=== PATIENT | female | born 1990 | race American Indian/Alaskan Native ===

== ENCOUNTER 2019-02-27 09:38 | Emergency (ER) | payer SELFPAY ==
[2019-02-27 09:55] VITALS: BP 108/72
--- NOTE | 2019-02-27 10:08 | Emergency Department Report ---
Chief Complaint: Urogenital-Female Stated Complaint: ABD PAIN Time Seen by Provider: 02/27/19 10:03 - HPI History of Present Illness: pt is a 28 yo female who presents to the ED with c/o mild lower abdominal cramping that began two days ago. states she began her menstrual cycle that began two days ago. states initially two days ago had heavier flow but that has since resolved and is now light. she denies any N/V, fever, chills, urinary sx. she denies any PMHx. no allergies to meds. states her previous cycle was at the end of january. she states she has a mirena IUD states it has been in since she was 20. vitals are normal on exam: no acute distress, non toxic appearing heart sounds are normal, no gallops, no rubs, no murmurs normal breath sounds bilaterally without w/r/r no abd tenderness on exam, no guarding, no rebound, no rigidity, normal bowel sounds pt is presenting with mild dysmenorrhea, menstrual cramps she has had her mirena IUD in for approximately 8 years, I advised pt she needed to follow up with an [facility] for removal pt is presenting with a non medical emergency at this time medical screening exam performed and there is no threat to life or limb - Exam Vital Signs: Vital Signs 02/27/19 09:46 Temperature 98.6 F Pulse Rate 95 H Respiratory 18 Rate Blood Pressure 108/72 O2 Sat by Pulse 99 Oximetry MSE screening note: Focused history and physical exam performed. ED Disposition for MSE Clinical Impression: Dysmenorrhea Disposition: Z-07 MED SCREENING EXAM-LEFT Is pt being admited?: No Does the pt Need Aspirin: No Condition: Stable Instructions: Dysmenorrhea (ED) Additional Instructions: may take tylenol or ibuprofen for discomfort. may use a heating pad for 15 minutes at a time do not apply directly to the skin. increase your water intake. please follow up with an [facility] in the next 2-3 days. please discuss removing your mirena. return to the emergency room for any new or worsening symptoms. Referrals: [facility] [Provider Group] - 2-3 Days [facility] [Provider Group] - 2-3 Days [facility] [Provider Group] - 2-3 Days [facility] [Outside] - 2-3 Days [facility] [Outside] - 2-3 Days Forms: Work/School Release Form(ED) Time of Disposition: 10:09 Print Language: MALTESE
== END 2019-02-27 10:41 | disposition left against medical advice (07) ==
LOC: ED 09:38
DX: N94.6 Dysmenorrhea, unspecified (principal)
CPT/HCPCS: 99281

== ENCOUNTER 2019-05-22 05:31 | Emergency (ER) | payer SELFPAY ==
[2019-05-22 05:39] VITALS: BP 114/76
[2019-05-22] MEDS ORDERED: KETOROLAC 30 MG/1 ML INJ IM ONE (08:42)
[2019-05-22] MEDS ORDERED: ONDANSETRON 4 MG ODT TAB PO ONE (08:42)
--- NOTE | 2019-05-22 08:42 | Emergency Department Report ---
<REVA ACEVEDO RASHIDCARLOS - Last Filed: 05/22/19 09:04> ED Headache HPI - General Chief Complaint: Headache Stated Complaint: HEADACHE, SORE THROAT Time Seen by Provider: 05/22/19 07:37 Source: patient, RN notes reviewed Exam Limitations: no limitations - History of Present Illness Initial Comments: This is a 28-year-old -[place] female who presents to the emergency room with a headache and sore throat for 2 days. Past medical history of occasional headaches and a gastric bypass in 2008. Patient states she is taking Goody powders which she usually takes for headaches but this time if not resolving. Reports bilateral temporal dull achy intensity. She denies fever, chills, cough, nausea, vomiting, visual changes, abdominal pain, or weakness. Timing/Duration: 24 hours Quality: moderate Head Injury Location: temporal Recent Head Trauma: occasional headaches Modifying Factors: worse with: cold therapy, exposure to light, immobilization, medication, movement, rest, other Associated Symptoms: denies: confusion, fatigue, facial pain, fever/chills, flushing, loss of consciousness, nausea/vomiting, nasal congestion, nasal drainage, numbness in legs/feet, rash, seizures, sinus infection, stiff neck, vision changes, weakness Allergies/Adverse Reactions: Allergies No Known Allergies Allergy (Verified 05/22/19 05:34) Home Medications: Ambulatory Orders Butalb/Acetaminophen/Caffeine [Fioricet 50-300-40 mg CAP] 1 cap PO Q8HR PRN #12 cap 05/22/19 ED Review of Systems Constitutional: denies: chills, fever Eyes: denies: eye pain, eye discharge, vision change ENT: throat pain. denies: ear pain Respiratory: denies: cough, shortness of breath, wheezing Cardiovascular: denies: chest pain, palpitations Gastrointestinal: denies: abdominal pain, nausea, diarrhea Musculoskeletal: denies: back pain, joint swelling, arthralgia Skin: denies: rash, lesions Neurological: headache. denies: weakness, paresthesias Psychiatric: denies: anxiety, depression ED Past Medical Hx - Past Medical History Previous Medical History?: No - Surgical History Past Surgical History?: Yes Additional Surgical History: gastric bypass - Social History Smoking Status: Current Every Day Smoker Substance Use Type: None - Medications Home Medications: Home Medications Medication Instructions Recorded Confirmed Last Taken Type Butalb/Acetaminophen/Caffeine 1 cap PO Q8HR PRN #12 cap 05/22/19 Unknown Rx [Fioricet 50-300-40 mg CAP] ED Physical Exam - General Limitations: No Limitations General appearance: alert, in no apparent distress - ENT ENT exam: Present: normal orophraynx, mucous membranes moist, TM's normal bilaterally, normal external ear exam - Neck Neck exam: Present: normal inspection - Respiratory Respiratory exam: Present: normal lung sounds bilaterally. Absent: respiratory distress - Cardiovascular Cardiovascular Exam: Present: regular rate, normal rhythm. Absent: systolic murmur, diastolic murmur, rubs, gallop - GI/Abdominal GI/Abdominal exam: Present: soft, normal bowel sounds. Absent: distended, tenderness, guarding, rebound, rigid - Extremities Exam Extremities exam: Present: normal inspection - Neurological Exam Neurological exam: Present: alert, oriented X3, normal gait - Psychiatric Psychiatric exam: Present: normal affect, normal mood - Skin Skin exam: Present: warm, dry, intact, normal color. Absent: rash ED Medical Decision Making - Medical Decision Making This is a 28 y.o. female that presents with headache and sore throat for 2 days. History of migraines and gastric bypass. Patient is stable and was examined by me. Given toradol and Zofran. Monitored for 1 hour and patient reports feeling better. Start Fioricet and continue NSAIDs PRN. Follow-up with PCP. Discharged home in stable condition. Patient given strict return instructions. Follow up with PCP in 24-72 hours. ED Disposition Clinical Impression: Migraine Qualifiers: Migraine type: without aura Status migrainosus presence: with status migrainosus Intractability: not intractable Qualified Code(s): G43.001 - Migraine without aura, not intractable, with status migrainosus Disposition: - TO HOME OR SELFCARE Is pt being admited?: No Condition: Stable Instructions: Migraine Headache (ED) Additional Instructions: Take medication at start of headache. Moderate caffeine intake. Eat at scheduled times or 3 meals a day with snacks. Follow up with primary care provider in 24-72 hours. Prescriptions: Butalb/Acetaminophen/Caffeine [Fioricet 50-300-40 mg CAP] 1 cap PO Q8HR PRN #12 cap PRN Reason: Headache Referrals: [facility] [place]] - 3-5 Days [facility] [Outside] - 3-5 Days [facility] [Outside] - 3-5 Days Forms: Work/School Release Form(ED) Time of Disposition: 09:14 <VIBHA GUERRA - Last Filed: 05/22/19 09:43> ED Review of Systems ROS: Stated complaint: HEADACHE, SORE THROAT Other details as noted in HPI ED Course Vital Signs 05/22/19 05:34 Temperature 97.5 F L Pulse Rate 69 Respiratory 18 Rate Blood Pressure 114/76 O2 Sat by Pulse 100 Oximetry ED Medical Decision Making - Medical Decision Making This patient was evaluated and dispositioned by the advanced practitioner. I was available for consultation. Critical care attestation.: If time is entered above; I have spent that time in minutes in the direct care of this critically ill patient, excluding procedure time. ED Disposition Is pt being admited?: No
== END 2019-05-22 09:27 | disposition home or self-care (01) ==
LOC: ED 05:31
DX: G43.909 Migraine, unspecified, not intractable, without status migrainosus (principal); J02.9 Acute pharyngitis, unspecified; F17.200 Nicotine dependence, unspecified, uncomplicated; Z98.890 Other specified postprocedural states; Z79.899 Other long term (current) drug therapy
CPT/HCPCS: 96372; 99282; J1885; Q0162

== ENCOUNTER 2020-06-10 23:07 | Emergency (ER) | payer SELFPAY ==
--- NOTE | 2020-06-11 00:40 | Emergency Department Report ---
ED Abdominal Pain HPI - General Chief Complaint: Abdominal Pain Stated Complaint: ABD PAINS Time Seen by Provider: 06/11/20 00:33 Source: patient Mode of arrival: Ambulatory Limitations: No Limitations - History of Present Illness Initial Comments: Chief complaint: Really bad menstrual cramps HPI this is a 29-year-old female who presents with menstrual cramps atypical vaginal bleeding. 2 days. She feels as if the Mirena needs to be removed. She denies fever. Mild to moderate pain. Ibuprofen provided mild relief. Tylenol exacerbates eczema. Goody powder exacerbates GERD. MD Complaint: abdominal pain -: Gradual, days(s) (2 days) Location: suprapubic Radiation: none Severity: mild, moderate Quality: cramping Consistency: constant Improves With: medication (Ibuprofen) Worsens With: nothing Associated Symptoms: denies other symptoms - Related Data Previous Rx's Medication Instructions Recorded Last Taken Type Butalb/Acetaminophen/Caffeine 1 cap PO Q8HR PRN #12 cap 05/22/19 Unknown Rx [Fioricet 50-300-40 mg CAP] traMADoL [Ultram 50 MG tab] 50 mg PO Q6HR PRN #15 tablet 06/11/20 Unknown Rx Allergies Allergy/AdvReac Type Severity Reaction Status Date / Time No Known Allergies Allergy Verified 09/12/19 13:14 ED Review of Systems ROS: Stated complaint: ABD PAINS Other details as noted in HPI Comment: All other systems reviewed and negative Constitutional: denies: fever, malaise Cardiovascular: denies: chest pain Gastrointestinal: denies: nausea, vomiting, diarrhea ED Past Medical Hx - Past Medical History Previous Medical History?: No - Surgical History Past Surgical History?: Yes Additional Surgical History: gastric bypass 2008 - Social History Smoking Status: Never Smoker - Medications Home Medications: Home Medications Medication Instructions Recorded Confirmed Last Taken Type Butalb/Acetaminophen/Caffeine 1 cap PO Q8HR PRN #12 cap 05/22/19 Unknown Rx [Fioricet 50-300-40 mg CAP] traMADoL [Ultram 50 MG tab] 50 mg PO Q6HR PRN #15 tablet 06/11/20 Unknown Rx ED Physical Exam - General Limitations: No Limitations General appearance: alert, in no apparent distress, other (Appears well no acute distress ambulatory without difficulty) - Head Head exam: Present: atraumatic, normocephalic - Eye Eye exam: Present: normal appearance - ENT ENT exam: Present: mucous membranes moist - Neck Neck exam: Present: normal inspection - Respiratory Respiratory exam: Present: normal lung sounds bilaterally. Absent: respiratory distress, wheezes, rales - Cardiovascular Cardiovascular Exam: Present: regular rate, normal rhythm, normal heart sounds. Absent: systolic murmur, diastolic murmur, rubs, gallop - GI/Abdominal GI/Abdominal exam: Present: soft, normal bowel sounds. Absent: distended, tenderness, guarding, rebound - Extremities Exam Extremities exam: Present: normal inspection - Back Exam Back exam: Present: normal inspection - Neurological Exam Neurological exam: Present: alert, oriented X3, normal gait - Psychiatric Psychiatric exam: Present: normal affect, normal mood - Skin Skin exam: Present: warm, dry, intact, normal color. Absent: rash ED Medical Decision Making - Medical Decision Making Dysmenorrhea: Prescription for tramadol provided Critical care attestation.: If time is entered above; I have spent that time in minutes in the direct care of this critically ill patient, excluding procedure time. ED Disposition Clinical Impression: Dysmenorrhea Disposition: DC-01 TO HOME OR SELFCARE Is pt being admited?: No Does the pt Need Aspirin: No Condition: Stable Instructions: Abdominal Pain (ED), Dysmenorrhea Prescriptions: traMADoL [Ultram 50 MG tab] 50 mg PO Q6HR PRN #15 tablet PRN Reason: Pain Referrals: NATHAN ROA MD [Staff Physician] - 3-5 Days Forms: Work/School Release Form(ED)
[2020-06-11 08:00] VITALS: BP 128/77
== END 2020-06-11 01:35 | disposition home or self-care (01) ==
LOC: ED 23:07
DX: N94.6 Dysmenorrhea, unspecified (principal); Z79.899 Other long term (current) drug therapy
CPT/HCPCS: 99282

== ENCOUNTER 2021-04-18 13:17 | Emergency (ER) | payer SELFPAY ==
[2021-04-18 13:41] VITALS: BP 103/85
--- NOTE | 2021-04-18 14:35 | Emergency Department Report ---
ED Rash HPI - HPI Chief Complaint: Skin Rash Stated Complaint: EZCEMA Time Seen by Provider: 04/18/21 13:48 Duration: 3 wks Location: Head, Chest, Back, Abdomen, Upper Extremities, Lower Extremities Rash Symptoms: Yes Itching, No Facial Swelling, No Tongue/Oral Swelling, No Breathing Difficulties, No Choking Sensation, No Wheezing/Dyspnea, No Peeling, No Blistering, No Fever, No Lightheaded, No Malaise, No Myalgias Severity: mild Other History: 30-year-old female with a known history of eczema presents to the ER today with complaints of a flareup of her eczema. Patient states that she ran out of her triamcinolone ointment 3 weeks ago and since then she her eczema has flared up. She states that she has been breaking almost everywhere. She reports a pruritic rash similar to that of her eczema. She denies any swelling, or any additional symptoms at this time. ED Review of Systems ROS: Stated complaint: EZCEMA Other details as noted in HPI Comment: All other systems reviewed and negative Constitutional: denies: chills, fever Eyes: denies: eye pain, eye discharge, vision change ENT: denies: ear pain, throat pain, dental pain, hearing loss, epistaxis, congestion Respiratory: denies: cough, orthopnea, shortness of breath, SOB with exertion, SOB at rest, wheezing Cardiovascular: denies: chest pain, palpitations, edema, syncope, paroxysmal nocturnal dyspnea Gastrointestinal: denies: abdominal pain, nausea, vomiting, diarrhea, constipation, hematemesis, hematochezia Skin: rash, pruritus Neurological: denies: headache, weakness, numbness, paresthesias, confusion, abnormal gait, vertigo Psychiatric: denies: anxiety, depression, auditory hallucinations, visual hallucinations, homicidal thoughts, suicidal thoughts Hematological/Lymphatic: denies: easy bleeding, easy bruising, swollen glands ED Past Medical Hx - Past Medical History Previous Medical History?: No - Surgical History Past Surgical History?: Yes Additional Surgical History: gastric bypass 2008 - Social History Smoking Status: Never Smoker - Medications Home Medications: Home Medications Medication Instructions Recorded Confirmed Last Taken Type Butalb/Acetaminophen/Caffeine 1 cap PO Q8HR PRN #12 cap 05/22/19 Unknown Rx [Fioricet 50-300-40 mg CAP] traMADoL [Ultram 50 MG tab] 50 mg PO Q6HR PRN #15 tablet 06/11/20 Unknown Rx Triamcinolone Aceton 0.1% (Nf) 1 applic TP DAILY #80 gram 04/18/21 Unknown Rx [Kenalog (NF)] Rash Exam - Exam General: Vital signs noted. No distress. Alert and acting appropriately. HEENT: No Periorbital Edema, No Conjuctival Injection, No Chemosis, No Perioral Edema, No Tongue Edema, No Uvular Edema, No Compromised Airway, No Drooling Lungs: Yes Good Air Exchange, No Wheezes, No Ronchi, No Stridor, No Cough, No Labored Respirations, No Retractions, No Use of Accessory Muscles, No Other Abnormal Lung Sounds Heart: Yes Regular, Yes Murmur Skin: Yes Maculopapular Rash (Maculopapular, hyperpigmented dry patchy areas scattered on her back, abdomen, extremities and mildly on her face), No Urticarial Rash, No Morbilliform rash, No Bulla(e), No Excoriations, No Weeping, No Tenderness, No Erythema, No Edema, No Encrustations, No Other Other: Positive: Abdomen Normal, Neurologic Normal, Musculoskeletal Normal ED Course Vital Signs 04/18/21 13:39 Temperature 98.4 F Pulse Rate 71 Respiratory 16 Rate Blood Pressure 103/85 [Left] O2 Sat by Pulse 95 Oximetry Critical care attestation.: If time is entered above; I have spent that time in minutes in the direct care of this critically ill patient, excluding procedure time. ED Disposition Clinical Impression: Eczema Disposition: 01 HOME / SELF CARE / HOMELESS Is pt being admited?: No Does the pt Need Aspirin: No Condition: Stable Instructions: Eczema Additional Instructions: Start the triamcinolone ointment as prescribed. 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 Return to ED if worse. Prescriptions: Triamcinolone Aceton 0.1% (Nf) [Kenalog (NF)] 1 applic TP DAILY #80 gram Referrals: PRIMARY MD MINDI [Primary Care Provider] - 3-5 Days KRISTEN MONTERROSO MD [Staff Physician] - 3-5 Days Time of Disposition: 14:35
== END 2021-04-18 14:58 | disposition home or self-care (01) ==
LOC: ED 13:17
DX: L30.9 Dermatitis, unspecified (principal); Z79.899 Other long term (current) drug therapy
CPT/HCPCS: 99282

== ENCOUNTER 2021-05-19 18:02 | Emergency (ER) | payer SELFPAY ==
[2021-05-19 19:35] VITALS: BP 119/76
[2021-05-19] MEDS ORDERED: KETOROLAC 10 MG TAB PO ONE (21:10)
--- NOTE | 2021-05-19 21:11 | Emergency Department Report ---
Upper Extremity - HPI Chief Complaint: Pain General Stated Complaint: RT WRIST PAIN Upper Extremity: Right Wrist Occurred When: 3 Days Mechanism: Other (Denies injury) Severity: moderate Symptoms: Yes Swelling, No Pain with Movement, No Deformity, No Limited Range of Movement, No Numbness, No Weakness, No Bruising/Ecchymosis, No Laceration or Abrasion Other History: 30-year-old female with no past medical history presents to the emergency department for evaluation of right wrist pain. She states that a few days ago she was working lifting boxes and when she woke up the next day she had pain to her right wrist. She states that pain has been persistent since then. She denies injury. She states that pain is worse when she presses in a certain spot but denies pain with movement. ED Review of Systems ROS: Stated complaint: RT WRIST PAIN Other details as noted in HPI Comment: All other systems reviewed and negative Constitutional: denies: chills, fever Eyes: denies: eye pain, eye discharge ENT: denies: ear pain, throat pain, dental pain Respiratory: denies: cough, shortness of breath Cardiovascular: denies: chest pain, palpitations, dyspnea on exertion, orthopnea, edema, syncope Endocrine: no symptoms reported Gastrointestinal: denies: abdominal pain, nausea, vomiting, diarrhea, hemateme sis, melena, hematochezia Genitourinary: denies: urgency, dysuria, frequency, hematuria, discharge Musculoskeletal: denies: back pain, joint swelling Skin: denies: rash, lesions Neurological: denies: headache, weakness, numbness, paresthesias, confusion, abnormal gait Psychiatric: denies: anxiety, depression Hematological/Lymphatic: denies: easy bleeding, easy bruising ED Past Medical Hx - Past Medical History Previous Medical History?: Yes Additional medical history: eczema - Surgical History Past Surgical History?: Yes Additional Surgical History: gastric bypass 2008 - Social History Smoking Status: Current Some Day Smoker - Medications Home Medications: Home Medications Medication Instructions Recorded Confirmed Last Taken Type Butalb/Acetaminophen/Caffeine 1 cap PO Q8HR PRN #12 cap 05/22/19 Unknown Rx [Fioricet 50-300-40 mg CAP] traMADoL [Ultram 50 MG tab] 50 mg PO Q6HR PRN #15 tablet 06/11/20 Unknown Rx Triamcinolone Aceton 0.1% (Nf) 1 applic TP DAILY #80 gram 04/18/21 Unknown Rx [Kenalog (NF)] Naproxen [Naprosyn] 500 mg PO BID #14 tab 05/19/21 Unknown Rx Upper Extremity Exam - Exam General: Vital signs noted. No distress. Alert and acting appropriately. Shoulder Exam: No Shoulder Tenderness Wrist: Yes Wrist Tenderness (Right wrist area), Yes Normal ROM in Wrist, No Wrist Deformity, No Snuffbox Tenderness, No Pain with Axial Thumb Compression Hand: No Hand Tenderness CMS Exam: Yes Normal Distal Pulses, Yes Normal Capillary Refill, Yes Normal Distal Sensation, No Broken Skin ED Course Vital Signs 05/19/21 19:31 Temperature 98.2 F Pulse Rate 69 Respiratory 18 Rate Blood Pressure 119/76 [Left] O2 Sat by Pulse 98 Oximetry - Reevaluation(s) Reevaluation #1: Patient states that her ride is leaving and she cannot stay for the x-ray. She was advised that she does have full range of motion and I have low suspicion for fracture, but she was advised to return to the emergency department if no improvement or worsening symptoms 05/19/21 21:21 ED Medical Decision Making - Medical Decision Making 30-year-old female with no past medical history presents to the emergency department for evaluation of right wrist pain. She states that a few days ago she was working lifting boxes and when she woke up the next day she had pain to her right wrist. She states that pain has been persistent since then. She denies injury. She states that pain is worse when she presses in a certain spot but denies pain with movement. X-ray was ordered for patient but she states that she cannot stay for x-ray because her ride was leaving. Exam with low suspicion for wrist fracture. Patient noted to have no increased pain with range of motion or movement. She has increased pain when you press in 1 area. She was advised to take medications as prescribed and follow-up with primary care provider or return to the emergency department if she has no improvement or worsening symptoms. She verbalized understanding of and agreement with plan of care. Critical care attestation.: If time is entered above; I have spent that time in minutes in the direct care of this critically ill patient, excluding procedure time. ED Disposition Clinical Impression: Right wrist pain Disposition: HOME / SELF CARE / HOMELESS Is pt being admited?: No Does the pt Need Aspirin: No Condition: Stable Instructions: How to Use Cold Therapy, [id number], Wrist Pain, Adult, [id number] Additional Instructions: Take medications as prescribed. Follow-up with primary care provider or in the ED if no improvement. Prescriptions: Naproxen [Naprosyn] 500 mg PO BID #14 tab Referrals: KIRA VILLEDA MD [Referring] - 3-5 Days Forms: Work/School Release Form(ED) Time of Disposition: 21:23
== END 2021-05-19 21:57 | disposition home or self-care (01) ==
LOC: ED 18:02
DX: M25.531 Pain in right wrist (principal); Z98.890 Other specified postprocedural states; F17.200 Nicotine dependence, unspecified, uncomplicated
CPT/HCPCS: 99282